=== PATIENT | female | born 1955 | race Caucasian/White ===

== ENCOUNTER → 2023-06-19 | Outpatient (CLI) | payer MEDICARE, BC ==
[~2023-06-19] MED LIST: ALPRAZOLAM0.5 M1 PO; AMOCLA875 PO; BUSP5 PO; ESCI20 PO; IMITREX100 MG PO; Lamictal150 MG PO; Percocet 5-3251 EACH PO
== END | disposition home or self-care (01) ==
LOC: LAB 08:04 → LAB SHORT 08:04
DX: R10.13 Epigastric pain (principal); R63.4 Abnormal weight loss
CPT/HCPCS: 87338

== ENCOUNTER 2023-08-03 17:14 | Emergency (ER) | payer MEDICARE, BC ==
[~2023-08-03] VITALS: Ht 157.5 cm; Wt 74.4 kg
[2023-08-03 17:54] LABS: BASOPHILS ABSOLUTE AUTO 0.02 K/mm3 (0.00-0.23); BASOPHILS PERCENT AUTO 0 % (0-2); EOSINOPHILS ABSOLUTE AUTO 0.07 K/mm3 (0.00-0.68); EOSINOPHILS PERCENT AUTO 1 % (0-6); Hematocrit 44.8 % (33.0-51.0); Hemoglobin 15.3 g/dL (11.5-16.0); IMMATURE GRAN ABSOLUTE AUTO 0.05 K/mm3 (0.00-0.10); IMMATURE GRAN PERCENT AUTO 1 % (0-1); LYMPHOCYTES ABSOLUTE AUTO 2.47 K/mm3 (0.84-5.20); LYMPHOCYTES PERCENT AUTO 47 % (21-46); MONOCYTES ABSOLUTE AUTO 0.24 K/mm3 (0.16-1.47); MONOCYTES PERCENT AUTO 5 % (4-13); Mean Corpuscular HGB 32.9 pg (26.0-34.0); Mean Corpuscular HGB Conc 34.2 g/dL (31.5-36.5); Mean Corpuscular Volume 96 fL (80-100); NEUTROPHILS ABSOLUTE AUTO 2.41 K/mm3 (1.96-9.15); NEUTROPHILS PERCENT AUTO 46 % (41-73); Red Blood Cell Count 4.65 M/mm3 (3.80-5.20); White Blood Cell Count 5.26 K/mm3 (4.00-11.30)
[2023-08-03 18:10] LABS: Magnesium, Blood 2.2 mg/dL (1.6-2.4)
[2023-08-03 18:17] LABS: Mean Platelet Volume 10.7 fL (9.1-12.4); Platelet Count 211 K/mm3 (150-400)
[2023-08-03 18:19] LABS: Albumin, Blood 4.9 g/dL (3.4-5.0); Bilirubin, Total 0.3 mg/dL (0.1-1.0); Bun/Creatinine Ratio 15.4 (12.0-20.0); Calcium, Blood 9.4 mg/dL (8.5-10.1); Creatinine, Blood 0.78 mg/dL (0.40-1.00); Globulin, Blood 2.5 g/dL (2.2-4.0); Potassium, Blood 3.8 mmol/L (3.5-5.5); Total Protein, Blood 7.4 g/dL (6.4-8.2)
[2023-08-03] MEDS ORDERED: CYCL10 PO (19:42)
[2023-08-03] MEDS ORDERED: LIDO700A20 TOP (19:42)
[2023-08-03 19:45] VITALS: BP 162/92
[2023-08-03 19:47] LABS: Prothrombin Time Results 10.5 Sec (9.7-11.5)
== END 2023-08-03 20:04 | disposition home or self-care (01) ==
LOC: ER 17:14
PROVIDERS: Student in an Organized Health Care Education/Training Program
DX: M54.50 Low back pain, unspecified (principal); M25.512 Pain in left shoulder; M25.551 Pain in right hip; J43.9 Emphysema, unspecified; I10 Essential (primary) hypertension; Z88.2 Allergy status to sulfonamides; Z88.5 Allergy status to narcotic agent; Z79.899 Other long term (current) drug therapy; Z87.891 Personal history of nicotine dependence
CPT/HCPCS: 51701; 51798; 70450; 71045; 71260; 72125; 72170; 74177; 80053; 82550; 83735; 85025; 85610; 93005; 93010; 96361; 96374; 96375; 96376; 99285-25; A9270; J1170; J1885; J3010; J7030; Q9967

== ENCOUNTER 2024-10-26 13:47 | Emergency (ER) | payer MEDICARE, BC ==
[~2024-10-26] VITALS: Ht 177.8 cm; Wt 77.1 kg
[~2024-10-26 13:47] MED LIST changes: +CYCL10 PO; +LIDO700A20 TOP
[2024-10-26] MEDS ORDERED: LORazepam 2 MG/ML 1ML Injection IV ONE (14:00)
[2024-10-26 14:14] LABS: BASOPHILS ABSOLUTE AUTO 0.02 K/mm3 (0.00-0.23); BASOPHILS PERCENT AUTO 1 % (0-2); EOSINOPHILS ABSOLUTE AUTO 0.02 K/mm3 (0.00-0.68); EOSINOPHILS PERCENT AUTO 1 % (0-6); Hemoglobin 14.6 g/dL (11.5-16.0); IMMATURE GRAN PERCENT AUTO 0 % (0-1); LYMPHOCYTES ABSOLUTE AUTO 1.38 K/mm3 (0.84-5.20); LYMPHOCYTES PERCENT AUTO 32 % (21-46); MONOCYTES PERCENT AUTO 5 % (4-13); Mean Corpuscular HGB 33.6 pg (26.0-34.0); Mean Corpuscular HGB Conc 32.4 g/dL (31.5-36.5); Mean Corpuscular Volume 103 fL (80-100); Mean Platelet Volume 9.7 fL (9.1-12.4); NEUTROPHILS ABSOLUTE AUTO 2.65 K/mm3 (1.96-9.15); NEUTROPHILS PERCENT AUTO 62 % (41-73); Platelet Count 187 K/mm3 (150-400); RDW Coefficient Variation 12.9 % (11.7-14.2); RDW Standard Deviation 49.4 fL (35.1-46.3); Red Blood Cell Count 4.35 M/mm3 (3.80-5.20); White Blood Cell Count 4.27 K/mm3 (4.00-11.30)
[2024-10-26 14:35] LABS: Albumin, Blood 3.9 g/dL (3.4-5.0); Albumin/Globulin Ratio 1.3 (0.8-1.8); Bilirubin, Total 0.4 mg/dL (0.1-1.0); Bun/Creatinine Ratio 20.9 (12.0-20.0); Calcium, Blood 8.8 mg/dL (8.5-10.1); Creatinine, Blood 0.53 mg/dL (0.40-1.00); Globulin, Blood 3.1 g/dL (2.2-4.0); Potassium, Blood 5.5 mmol/L (3.5-5.5)
[2024-10-26 15:30] VITALS: BP 159/91
== END 2024-10-26 16:08 | disposition home or self-care (01) ==
LOC: ER 13:47
PROVIDERS: Emergency Medicine
DX: R56.9 Unspecified convulsions (principal); I10 Essential (primary) hypertension; Z87.891 Personal history of nicotine dependence; Z79.899 Other long term (current) drug therapy; Z88.2 Allergy status to sulfonamides; Z88.5 Allergy status to narcotic agent
CPT/HCPCS: 80053; 85025; 93005; 93010; 96374; 99284-25; J2060